=== PATIENT | male | born 1960 | race Caucasian/White ===

== ENCOUNTER → 2020-09-13 | Outpatient (CLI) | payer OTHER ==
--- NOTE | 2020-09-13 15:55 | US ---
EXAMINATION TYPE: US carotid duplex BILAT DATE OF EXAM: 09/13/2020 COMPARISON: NONE CLINICAL HISTORY: R09.89 Other specified symptoms and signs involving. Stenosis EXAM MEASUREMENTS: RIGHT: Peak Systolic Velocity (PSV) cm/sec ----- Right CCA: 133.2 ----- Right ICA: 115.7 ----- Right ECA: 162.8 ICA/CCA ratio: 0.9 RIGHT: End Diastole cm/sec ----- Right CCA: 40.6 ----- Right ICA: 44.6 ----- Right ECA: 28.8 LEFT: Peak Systolic Velocity (PSV) cm/sec ----- Left CCA: 127.0 ----- Left ICA: 110.8 ----- Left ECA: 141.5 ICA/CCA ratio: 0.9 LEFT: End Diastole cm/sec ----- Left CCA: 36.5 ----- Left ICA: 49.4 ----- Left ECA: 23.6 VERTEBRALS (direction of flow): Right Vertebral: Antegrade Left Vertebral: Antegrade Rhythm: Normal Bilateral intimal thickening, plaque bilateral bulb, elevated velocities: right prox and distal CCA, right prox ECA, left prox CCA and left prox ECA, no significant stenosis. Large plaque appears to be at the left carotid bulb.. IMPRESSION: 1. 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 2. Plaque within the left carotid bulb may be approaching 50% Criteria for Assigning % of Stenosis / Diameter reduction (Estimation based on the indirect measurements of the internal carotid artery velocities (ICA PSV). 1. Normal (no stenosis)=ICA PSV < 125 cm/s: ratio < 2.0: ICA EDV<40 cm/s. 2. Less than 50% stenosis=ICA PSV < 125 cm/s: ratio < 2.0: ICA EDV<40 cm/s. 3. 50 to 69% stenosis=ICA PSV of 125 to 230 cm/s: ration 2.0 ? 4.0: ICA EDV 40-100 cm/s. 4. Greater than 70% stenosis to near occlusion= ICA PSV > 230 cm/s: ratio > 4.0: ICA EDV > 100 cm/s. 5. Near occlusion= ICA PSV velocities may be low or undetectable: variable ratio and ICA EDV. 6. Total occlusion=unable to detect flow.
== END | disposition home or self-care (01) ==
LOC: RADUSWWP 15:20
PROVIDERS: ATTEND Family Medicine
DX: I65.22 Occlusion and stenosis of left carotid artery (principal)
CPT/HCPCS: 93880